=== PATIENT | female | born 1985 | race Caucasian/White ===

== ENCOUNTER 2019-05-12 15:37 | Outpatient (CLI) | payer MEDICAID, SELFPAY ==
[2019-05-12 16:33] LABS: Anion Gap 10.2 mmol/L (3-11); BUN 13 mg/dL (7-18); CO2 24.8 mmol/L (21.0-32.0); CREATININE 0.82 mg/dL (0.55-1.02); Calcium 9.2 mg/dL (8.5-10.1); Calculated LDL 64 mg/dL; Chloride 104 mmol/L (98-107); Cholesterol 145 mg/dL (50-200); Glucose 86 mg/dL (70-100); HDL Cholesterol 53 mg/dL (40-60); Sodium 139 mmol/L (136-145); Triglyceride 143 mg/dL (30-150)
== END 2019-05-12 15:57 ==
PROVIDERS: PCP Nurse Practitioner Family; Visit Provider Nurse Practitioner Family
DX: Z13.220 Encounter for screening for lipoid disorders (principal); Z13.1 Encounter for screening for diabetes mellitus; Z11.3 Encounter for screening for infections with a predominantly sexual mode of transmission; Z12.4 Encounter for screening for malignant neoplasm of cervix
CPT/HCPCS: 36415; 80048; 80061; 87491; 87591; 88142

== ENCOUNTER 2019-05-12 15:58 | Outpatient (REF) | payer MEDICAID, SELFPAY ==
--- NOTE | 2019-05-12 15:45 | PAPFT_PTH ---
PATIENT: Camilla Tinoco LOC: [facility] U#:[id number] AGE/SX: 34/F ROOM: RE05/12/[address]: MODESTA Beltran : 1985 BED: DIS: 05/12/2019 SPEC #: [id number] RECD: 05/13/19 12:44 STATUS: KAITLIN REShani #: [id number] IVONNE: 05/12/19 15:[address]: Wanda Grant DEPT: [facility] Cytology RECD BY: Kenzie Winkler ENTERED: 05/13/19 12:44 SP TYPE: PAPFT IVETH DR: Monserrat Call, JENNY Tissues: 1 - CX/ENDOCX FOR PAP SMEARS Procedures: PAP THIN PREP/UVM Screening Comments: [id number]
[2019-05-14 13:09] LABS: Chlamydia Result Negative; GC Result Negative; Specimen Description URINE
== END 2019-05-12 16:18 ==
LOC: LBN 15:58
PROVIDERS: PCP Nurse Practitioner Family; Visit Provider Nurse Practitioner Family
DX: Z11.3 Encounter for screening for infections with a predominantly sexual mode of transmission (principal); Z12.4 Encounter for screening for malignant neoplasm of cervix; Z90.710 Acquired absence of both cervix and uterus
CPT/HCPCS: 87491; 87591

== ENCOUNTER 2019-10-06 16:24 | Outpatient (REF) | payer MEDICAID, SELFPAY ==
[2019-10-06 19:15] LABS: TSH (W/Ref FT4) 1.73 uIU/mL (0.36-3.74)
[2019-10-08 04:56] LABS: Vitamin D 25 Total 20.3 ng/ml (30-100)
== END 2019-10-06 16:44 ==
LOC: LBN 16:24
PROVIDERS: PCP Nurse Practitioner Family; Visit Provider Family Medicine
DX: R53.83 Other fatigue (principal); R63.5 Abnormal weight gain
CPT/HCPCS: 82306; 84443

== ENCOUNTER 2020-02-05 10:41 | Emergency (ER) | payer MEDICAID, SELFPAY ==
[2020-02-05 10:44] VITALS: BP 127/85; PULSE 84; RESP 16; TEMP 36.7; O2SAT 97
--- NOTE | 2020-02-05 11:33 | W.ED.GENAD ---
Discharge Plan Disposition Patient Disposition: HOME Discharge Details Chief Complaint: DentalOral Clinical Impression: Dental abscess Primary Care Provider: Monserrat Call ED Provider: Bart Liang Home Meds and New Rx's Prescriptions: Continued escitalopram oxalate [Lexapro] 10 mg tablet 20 mg PO DAILY RF: 0 acetylcysteine [NAC] 600 mg capsule 1,200 mg PO BID RF: 0 cetirizine [Zyrtec] 10 mg tablet 10 mg PO DAILY Qty: 90 RF: 3 omeprazole magnesium [Prilosec OTC] 20 mg tablet,delayed release (DR/EC) 20 mg PO AC Qty: 90 RF: 3 naproxen sodium [Aleve] 220 MG capsule 1 tab PO PRN PRNRF: 0 penicillin V potassium 500 mg Tablet 500 mg PO QID RF: 0 Vyvanse 60 mg capsule 60 mg PO DAILY RF: 0 Discharge Instructions Instructions: Dental Abscess (ED) Additional Instructions: Please take full course of antibiotic as prescribed by your dentist. Please follow-up with your dentist. Call today to schedule follow-up. Return to the emergency department for any worsening or new concerning symptoms. Referrals: Monserrat Call, MALAIKA [Primary Care Provider] - Discharge Data Discharge Date/Time-TO BE ENTERED AT DEPARTURE: 02/05/20 12:36 Medical Decision Making 34-year-old female here with periapical dental abscess. Patient provided verbal informed consent to abscess incision and drainage. Periapical dental block was provided with lidocaine. Patient is to continue penicillin. Usual customary discharge instructions were provided. HPI General Mode of arrival: ambulatory. Date/Time Provider Initiated Documentation: 02/05/20 11:21. Limitations to Documentation: no limitations. Information obtained by: patient. HPI Narrative: 34-year-old female with history of chronic dental disease, presents with chief complaint of dental pain. Patient notes 2 days of pain and swelling right lower molar. She started penicillin prescription 2 days ago that was previously prescribed by dentist. She had similar flareup about a month ago that improved with penicillin. Today swelling was severe when she woke up and has improved with ice and gravity today. She took Aleve this morning which does help minimally with pain. No associated fever. Related Data Home Medications Medication Instructions Recorded Confirmed naproxen sodium [Aleve] 1 tab PO PRN PRN 01/22/16 02/05/20 cetirizine 10 mg tablet 10 mg PO DAILY #90 tab-cap 06/18/19 02/05/20 acetylcysteine 600 mg capsule 1,200 mg PO BID cap 10/06/19 02/05/20 escitalopram oxalate 10 mg tablet 20 mg PO DAILY tab 10/06/19 02/05/20 omeprazole magnesium 20 mg 20 mg PO AC #90 tab 01/25/20 02/05/20 tablet,delayed release Vyvanse 60 mg PO DAILY 02/05/20 02/05/20 penicillin V potassium 500 mg PO QID 02/05/20 02/05/20 Previous Rx's Medication Instructions Recorded cetirizine 10 mg tablet 10 mg PO DAILY #90 tab-cap 06/18/19 omeprazole magnesium 20 mg 20 mg PO AC #90 tab 01/25/20 tablet,delayed release Allergies Allergy/AdvReac Type Severity Reaction Status Date / Time pollen extracts AdvReac Verified 10/06/19 15:50 General Stated Complaint: DentalOral SIMEON: 4 Review of Systems Constitutional Constitutional: Denies fever(s) ENT Ears, Nose, Mouth, and Throat: Reports as per HPI [facility] Medical History Depression (Chronic 02/18/14) 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 Maria Esther Allan [facility] Pulmonology Opioid use disorder (Chronic) [place] 02/26/2014 Polysubstance abuse (Chronic) Thyroid nodule (Chronic 07/12/16) Tobacco use disorder (Chronic) 1 PPD Surgical History History of surgery on upper extremity (Acute) R for fx Status post cholecystectomy (Acute) Status post hysterectomy (Acute) Dysmenorrhea, menorrhagia, and NATALIYA III Family History Mother No problems noted. Father No problems noted. Sister Depression Grandmother Diabetes Social History Smoking/Tobacco Use Status: Current every day Tobacco Type: cigarettes Alcohol Intake: current Alcohol Intake frequency: 3 or more drinks per day Drug use: Daily Substance use type: marijuana Caregiver/Support person: No Household members: spouse Number of Children: 2 current occupation: Unknown What type of physical activity do you participate in: walking Frequency: 3-4 times per week Do you feel safe at home: Yes Do you feel safe in your relationship?: Yes Female Reproductive History Menstrual Menopause type: surgical History History 2 Para 2 Hx # Term Pregnancies Multiple births Hx # Pregnancies Ectopic pregnancies AB induced Hx Number of Living Children AB spontaneous Exam Const General: cooperative and no acute distress HENMT Mouth: tongue normal and moist mucous membranes Teeth and gingiva: poor dentition and other (Chronic fractured tooth #28 with adjacent swelling lateral to tooth) Other: No sublingual swelling, no trismus Eyes Conjunctivae: normal conjunctivae Sclera: normal sclerae Neck Neck: trachea midline and supple Skin General skin exam: no rashes or lesions noted Neuro General: patient alert, patient awake and tone normal Course Vital Signs Vital signs: Vital Signs Temperature 36.7 C 02/05/20 10:44 Pulse 84 02/05/20 10:44 Respiratory Rate 16 02/05/20 10:44 Blood Pressure 127/85 02/05/20 10:44 Pulse Oximetry 97 02/05/20 10:44 Temperature 36.7 C 02/05/20 10:44 Temperature Source Skin 02/05/20 10:44 Pulse 84 02/05/20 10:44 Respiratory Rate 16 02/05/20 10:44 Respiratory Effort Non-Labored 02/05/20 10:49 Blood Pressure 127/85 02/05/20 10:44 Blood Pressure Position Sitting 02/05/20 10:44 Pulse Oximetry 97 02/05/20 10:44 Oxygen Delivery Method Room Air 02/05/20 10:44 Oxygen Flow Rate 0 02/05/20 10:44 Pain Level 5 02/05/20 10:44 Procedures Abscess I/D Site: Other (dental) Side (if applicable): Right Sedation/analgesia: None Local Anesthetic: Lidocaine 2% Amount of anesthesia used (mL): 2 Technique: Incised with #11 Blade Amount of fluid expressed (mL): 1 Packing used?: None Complications: Pain (with injection)
[2020-02-05] MEDS: Benzocaine 20% Gel 30 GM JAR MM (11:47)
[2020-02-05] MEDS: Acetaminophen 325 MG TAB 650 MG PO (11:47)
== END 2020-02-05 12:36 | disposition home or self-care (01) ==
PROVIDERS: Emergency Provider Student in an Organized Health Care Education/Training Program; PCP Nurse Practitioner Family
DX: R68.84 Jaw pain (principal); R22.0 Localized swelling, mass and lump, head; K04.7 Periapical abscess without sinus
CPT/HCPCS: 41800

== ENCOUNTER 2020-07-19 15:29 | Emergency (ER) | payer MEDICAID, SELFPAY ==
[2020-07-19 15:41] VITALS: PULSE 98; RESP 28
--- NOTE | 2020-07-19 15:45 | DI.RAD_ITS ---
EXAM: XR SHOULDER LT COMPLETE 2+V CLINICAL HISTORY: Fall, LUE pain. TECHNIQUE: 2D digital imaging was performed. COMPARISON: CR CHEST 2 VIEWS PA,LAT from 06/28/2016 CR CHEST 2 VIEWS PA,LAT from 06/28/2016 FINDINGS: BONES: There is a moderately displaced acute fracture of the greater tuberosity. No bony destructive lesion is seen. JOINTS: No dislocation present. SOFT TISSUE: Normal. Diffuse interstitial disease is seen in the visualized portions of the lungs. IMPRESSION: Displaced greater tuberosity fracture. Fragment is displaced approximately 6 mm laterally. DATA REPOSITORY: RADIATION DOSE DELIVERED:
--- NOTE | 2020-07-19 15:47 | W.ED.GENAD ---
Discharge Plan Disposition Patient Disposition: HOME Condition: Improving Discharge Details Clinical Impression: Fracture of greater tuberosity of left humerus Primary Care Provider: Monserrat Call ED Provider: Jaime Rivero Home Meds and New Rx's Prescriptions: New ketorolac 10 mg tablet 10 mg PO TID PRN (Reason: pain) 5 Days Qty: 14 RF: 0 methocarbamol 500 mg tablet 500 mg PO Q6H PRN (Reason: pain or muscular spasm) Qty: 14 RF: 0 Continued escitalopram oxalate [Lexapro] 10 mg tablet 20 mg PO DAILY RF: 0 acetylcysteine [NAC] 600 mg capsule 1,200 mg PO BID RF: 0 clindamycin phosphate 1 % gel 1 applic TP DAILY Qty: 30 RF: 0 omeprazole magnesium [Prilosec OTC] 20 mg tablet,delayed release (DR/EC) 20 mg PO AC Qty: 90 RF: 3 cetirizine [Zyrtec] 10 mg tablet 10 mg PO DAILY Qty: 90 RF: 3 naproxen sodium [Aleve] 220 MG capsule 1 tab PO PRN PRNRF: 0 Vyvanse 60 mg capsule 60 mg PO DAILY RF: 0 Discharge Instructions Additional Instructions: Wear sling until seen by orthopedics. Apply ice 20 minutes at a time, 20 minutes off, to reduce pain and swelling. May use the prescribed Toradol as needed for pain. Do not use in addition to Aleve/naproxen/ibuprofen/Motrin. As we discussed, you may use the provided hydromorphone if needed for severe or breakthrough pain. Please call the orthopedic office at [phone] for an appointment time. I discussed your case with Dr. Tate this evening. Medical Decision Making 35-year-old female slipped and fell at home landing on outstretched left arm. She states she developed immediate left arm and shoulder pain. She did not suffer any other injury. She arrives anxious and in significant distress. She has a history of polysubstance abuse and initially stated she did not wish to have any narcotic analgesia. After being unable to examine her due to the significant amount of pain she was experiencing, we discussed the combination of the small aliquot of opiate, anxiolytic, and anti-inflammatory. She was in agreement with this. Referred for x-ray which reveals fracture of the greater tuberosity of the humeral head. Will place in a sling. Patient to follow-up in orthopedic clinic. As per her wishes to avoid any significant further narcotics, we will have her take prescribed Toradol along with methocarbamol if needed for further pain/spasm.. She is instructed to use liberal amounts of ice. Prior to discharge, patient began to cry and requested a very small amount of narcotics to be used for severe/breakthrough pain. I do feel this is reasonable. We will send her home with a small number of Dilaudid to be used as needed for severe and breakthrough pain. HPI General Mode of arrival: ambulatory. Date/Time Provider Initiated Documentation: 07/19/20 15:40. Limitations to Documentation: no limitations. Information obtained by: patient. History of Present Illness 35 year old F presents to the emergency department with the chief complaint of Fall and left arm pain, described as severe, Quality is described as dull, and is localized to the left and upper extremity. Patient reports no radiation. Patient started experiencing this minute(s) and it has been constant. No relieving factors improve symptom(s), Movement worsens symptoms . Patient notes no other symptoms.; denies chest pain, headaches and syncope. Patient did receive the following treatments prior to arrival, none Related Data Home Medications Medication Instructions Recorded Confirmed naproxen sodium [Aleve] 1 tab PO PRN PRN 01/22/16 07/19/20 acetylcysteine 600 mg capsule 1,200 mg PO BID cap 10/06/19 07/19/20 escitalopram oxalate 10 mg tablet 20 mg PO DAILY tab 10/06/19 07/19/20 omeprazole magnesium 20 mg 20 mg PO AC #90 tab 01/25/20 07/19/20 tablet,delayed release Vyvanse 60 mg PO DAILY 02/05/20 07/19/20 clindamycin phosphate 1 % topical 1 applic TP DAILY #30 gm 05/12/20 07/19/20 gel cetirizine 10 mg tablet 10 mg PO DAILY #90 tab-cap 06/22/20 07/19/20 ketorolac 10 mg PO TID PRN 5 Days #14 tab 07/19/20 methocarbamol 500 mg PO Q6H PRN #14 tab 07/19/20 Previous Rx's Medication Instructions Recorded omeprazole magnesium 20 mg 20 mg PO AC #90 tab 01/25/20 tablet,delayed release clindamycin phosphate 1 % topical 1 applic TP DAILY #30 gm 05/12/20 gel cetirizine 10 mg tablet 10 mg PO DAILY #90 tab-cap 06/22/20 ketorolac 10 mg PO TID PRN 5 Days #14 tab 07/19/20 methocarbamol 500 mg PO Q6H PRN #14 tab 07/19/20 Allergies Allergy/AdvReac Type Severity Reaction Status Date / Time pollen extracts AdvReac Verified 07/19/20 15:43 General Stated Complaint: Orthopedic SIMEON: 3 Review of Systems Narrative: Denies other injury. No head/neck/chest/back pain [facility] Medical History (Updated 07/19/20 @ 17:11 by Jaime Rivero MD) Depression (02/18/14) Langerhans cell histiocytosis of lung (12/03/16) Dr. Maria Esther Allan [facility] Pulmonology Opioid use disorder [facility] 02/26/2014 Polysubstance abuse Thyroid nodule (07/12/16) Tobacco use disorder 1 PPD Surgical History History of surgery on upper extremity R for fx Status post cholecystectomy Status post hysterectomy Dysmenorrhea, menorrhagia, and NATALIYA III Family History Mother No problems noted. Father No problems noted. Sister Depression Grandmother Diabetes Social History Smoking/Tobacco Use Status: Current every day Tobacco Type: cigarettes Smoking risk assessment performed?: Yes Alcohol Intake: current Alcohol Intake frequency: 3 or more drinks per day Drug use: Daily Substance use type: marijuana Caregiver/Support person: No Household members: spouse Number of Children: 2 current occupation: Unknown What type of physical activity do you participate in: walking Frequency: 3-4 times per week Do you feel safe at home: Yes Do you feel safe in your relationship?: Yes Female Reproductive History Menstrual Menopause type: surgical History History 2 Para 2 Hx # Term Pregnancies Multiple births Hx # Pregnancies Ectopic pregnancies AB induced Hx Number of Living Children AB spontaneous Exam Narrative Exam Narrative: GEN: awake, alert, oriented 3. In pain and anxious HEAD: Normocephalic, atraumatic ENT: Mucous membranes moist, oropharynx unremarkable, External ear exam unremarkable EYES: PERRL, EOMI NECK: Full ROM, no JEB, no menigismus CHEST/RESP: Nontender, clear to auscultation bilateral, no wheeze/rhonchi/rales CARDIOVASCULAR: RRR, no murmur, rub fercho. 2+ Rad pulse bilateral ABDOMEN: Soft, nontender, no mass. +Bowel sounds EXT: Left lateral humeral head tender to palpation. Sensation intact. Patient was able to demonstrate wrist extension, make the okay sign, cross long finger over index. Sensation was intact distally as well. 2+ radial pulse bilaterally. Neuro: Grossly normal neurologic exam, conversant, interactive. Psych: Speech fluent, thoughts congruent, affect anxious Course Vital Signs Vital signs: Vital Signs Pulse 98 H 07/19/20 15:41 Respiratory Rate 28 H 07/19/20 15:41 Pulse 98 H 07/19/20 15:41 Respiratory Rate 28 H 07/19/20 15:41 Blood Pressure Position Sitting 07/19/20 15:41 Pain Level 10 07/19/20 15:41 Comment 07/19/20 15:41
[2020-07-19] MEDS: HYDROmorphone 2 MG/ML VIAL 1 MG IVP (15:59)
[2020-07-19] MEDS: Ketorolac 30 MG/ML VIAL IVP (16:00)
[2020-07-19] MEDS: LORazepam 2 MG/ML VIAL 1 MG IVP (16:00)
[2020-07-19 16:09] VITALS: BP 124/90; PULSE 90; RESP 14; TEMP 36.4; O2SAT 95
[2020-07-19 16:55] VITALS: BP 121/83; PULSE 77; RESP 18; O2SAT 94
--- NOTE | 2020-07-19 17:02 | DI.VRAD_ITS ---
PROCEDURE INFORMATION: Exam: XR Left Shoulder Exam date and time: 07/19/2020 3:47 PM Age: 35 years old Clinical indication: Other: Fall, lue pain TECHNIQUE: Imaging protocol: XR Left shoulder. Views: 2 or more views. COMPARISON: No relevant prior studies available. FINDINGS: Bones/joints: Displaced fracture of the greater tuberosity of the humeral head. The glenohumeral joint is aligned Lungs: Increased interstitial densities in the lung diaz may represent interstitial edema or chronic lung changes Soft tissues: Soft tissue swelling of the shoulder IMPRESSION: Displaced fracture of the greater tuberosity of the humeral head. Dictated and Authenticated by: Yeni Shaw MD. Ordering:DEANGELO Sandoval MD
[2020-07-19 18:08] VITALS: BP 111/91; PULSE 80; RESP 18; TEMP 36.5; O2SAT 96
[2020-07-19] MEDS: HYDROmorphone 2 MG TAB PO (18:09)
[2020-07-19] MEDS: HYDROmorphone 2 MG/ML VIAL 0.5 MG IVP (18:09)
[2020-07-19 18:22] VITALS: BP 111/91; PULSE 80; RESP 18; TEMP 36.5; O2SAT 96
== END 2020-07-19 18:23 | disposition home or self-care (01) ==
PROVIDERS: Emergency Provider Emergency Medicine; PCP Nurse Practitioner Family
DX: S42.252A Displaced fracture of greater tuberosity of left humerus, initial encounter for closed fracture (principal); W01.0XXA Fall on same level from slipping, tripping and stumbling without subsequent striking against object, initial encounter
CPT/HCPCS: 96374; 96375; 96376; 99284; 73030; J1885; J2060; L3650

== ENCOUNTER 2020-07-26 04:00 | Outpatient (CLI) | payer MEDICAID, SELFPAY ==
[2020-07-27 17:36] LABS: SARS-CoV-2 RNA Not Detected (NotDetected); SARS-CoV-2 RNA Source Nasal/Nares
== END 2020-07-26 04:20 ==
PROVIDERS: PCP Nurse Practitioner Family; Visit Provider Student in an Organized Health Care Education/Training Program
DX: Z01.818 Encounter for other preprocedural examination (principal); S42.252A Displaced fracture of greater tuberosity of left humerus, initial encounter for closed fracture
CPT/HCPCS: U0003

== ENCOUNTER 2020-07-26 12:05 | Outpatient (CLI) | payer OTHER, MEDICAID, SELFPAY ==
--- NOTE | 2020-07-26 11:30 | DI.RAD_ITS ---
EXAM: XR SHOULDER LT COMPLETE 2+V CLINICAL HISTORY: Left shoulder pain. TECHNIQUE: 2D digital imaging was performed. COMPARISON: CR,XR XR SHOULDER LT COMPLETE 2+V from 07/19/2020 FINDINGS: BONES: There has been no significant change in alignment of the fracture involving the greater tubero sity of the left humerus. No new fracture or dislocation is identified. No bony destructive lesion is seen. JOINTS: No dislocation present. SOFT TISSUE: Normal. IMPRESSION: Stable left humeral fracture. DATA REPOSITORY: RADIATION DOSE DELIVERED:
== END 2020-07-26 12:25 ==
PROVIDERS: PCP Nurse Practitioner Family; Referring Provider Nurse Practitioner Family; Visit Provider Student in an Organized Health Care Education/Training Program
DX: S42.392A Other fracture of shaft of left humerus, initial encounter for closed fracture (principal)
CPT/HCPCS: 73030

== ENCOUNTER 2020-07-29 11:24 | Day surgery (SDC) | payer OTHER, MEDICAID, SELFPAY ==
[2020-07-29] VITALS (7 sets, daily range): BP systolic 112–133; BP diastolic 75–95; PULSE 77–96; RESP 16–22; TEMP 36.3–36.6; O2SAT 93–100
[2020-07-29] MEDS: Lactated Ringers 1,000 ML 100 ML IV ×2 (12:28→16:37)
--- NOTE | 2020-07-29 13:00 | DI.RAD_ITS ---
EXAM: XR HUMERUS LT CLINICAL HISTORY: Fracture of greater tuberosity of left humerus. TECHNIQUE: 2D and realtime digital imaging was performed. COMPARISON: CR XR SHOULDER LT COMPLETE 2+V from 07/26/2020 FINDINGS: Fluoroscopy was provided in the OR during open reduction and internal fixation of the previously note d proximal humeral fracture. Hard copy images show placement of 3 partially threaded screws through the fracture. Alignment appears anatomic. Please see procedure note for details. RADIATION DOSE DELIVERED:
[2020-07-29] MEDS: Bupivacaine LIPOSOME/PF 133 MG/10 ML VIAL IJ (13:15)
[2020-07-29] MEDS: Bupivacaine 0.5% Pres-Free 30 ML VIAL (13:15)
[2020-07-29] MEDS: ceFAZolin 2 GM/50 ML BAG IVPB (14:26)
[2020-07-29] MEDS: EPINEPHrine 1 MG/ML AMP pres-free ×2 (15:11→16:25)
[2020-07-29] MEDS: Bupivacaine 0.25% Pres-Free 30 ML VIAL ×2 (15:11→16:25)
--- NOTE | 2020-07-29 17:01 | PDOC.DSDIS_ITS ---
Discharge Plan Disposition Patient Disposition: HOME Condition: Stable Discharge Details Reason For Visit: Left shoulder surgery Attending Provider: López Ortega Primary Care Provider: Monserrat Call Home Meds and New Rx's Prescriptions: New ibuprofen 800 mg tablet 800 mg PO BID PRN (Reason: pain, moderate) Qty: 60 RF: 0 aspirin 81 mg tablet,delayed release (DR/EC) 81 mg PO DAILY 14 Days Qty: 14 RF: 0 oxycodone 5 mg tablet 5 - 10 mg PO Q4H PRN (Reason: moderate to severe pain) Qty: 16 RF: 0 Continued acetaminophen [Tylenol Extra Strength] 500 mg tablet 500 mg PO Q6H PRNRF: 0 methocarbamol 750 mg tablet 750 mg PO QID Qty: 30 RF: 1 diclofenac sodium [Voltaren] 1 % gel 2 - 4 g topical QID PRN (Reason: pain) Qty: 100 RF: 0 escitalopram oxalate [Lexapro] 10 mg tablet 20 mg PO DAILY RF: 0 acetylcysteine [NAC] 600 mg capsule 1,200 mg PO BID RF: 0 clindamycin phosphate 1 % gel 1 applic TP DAILY Qty: 30 RF: 0 omeprazole magnesium [Prilosec OTC] 20 mg tablet,delayed release (DR/EC) 20 mg PO AC Qty: 90 RF: 3 cetirizine [Zyrtec] 10 mg tablet 10 mg PO DAILY Qty: 90 RF: 3 Vyvanse 60 mg capsule 60 mg PO DAILY RF: 0 Discontinued naproxen sodium [Aleve] 220 MG capsule 1 tab PO PRN PRNRF: 0 Discharge Instructions Additional Instructions: Surgery: Left proximal humerus, greater tuberosity ORIF Activity: Non-weightbearing in sling. May loosen or remove sling while resting in chair or bed. Please avoid most lifting and reaching reaching with your left arm for approximately 6 to 8 weeks. May use lightly for essential activities of daily living. A physical therapy prescription will be provided separately in the office at follow-up as needed.. Prescriptions: Aspirin 81 mg take 1 daily to prevent a blood clot for 2 weeks Ibuprofen 800 mg take 1 every 12 hours with a meal as needed for moderate pain Oxycodone 5 mg take 1-2 every 4-6 hours as needed for severe pain You may use [id number] Tylenol (acetaminophen) as needed for mild pain. These pain medications may be taken all at once or in different combinations as needed. Also, recommend Colace (docusate) as a stool softener as surgery and pain medicine cause constipation. Dressings: Leave splint and dressing in place until follow-up. Keep clean and dry at all times. Follow-up: 10-[address] Ortega (08/09/20 at 9:45 AM) Let us know right away if you develop any redness, drainage, fevers, chest pain, or trouble breathing. Do not drink alcohol or drive for at least 24 hours after anesthesia. Please call the office during business hours with any questions or concerns. Referrals: López Ortega MD [ [facility] STAFF PHYSICIAN] - Discharge Orders Discharge Orders: Discharge Order (Routine); Ordered 07/29/20 Ordered By: López Ortega DS: Diagnosis Discharge Diagnosis (1) Fracture of greater tuberosity of left humerus: Status: Acute
--- NOTE | 2020-07-29 17:02 | W.PM.OP ---
Date of service: 07/29/20 Time of Service: 16:37 Operative Note Operative Note DATE OF PROCEDURE: 07/29/20 PRE-OP DIAGNOSIS: Left proximal humerus fracture POST-OP DIAGNOSIS: same PROCEDURE: Left proximal humerus ORIF, CPT # 04656 SURGEON: López Ortega SEWING MACHINE OPERATOR PAPER BAGS: Siobhan Mota ANESTHESIA: GETA, regional and local ESTIMATED BLOOD LOSS: 20 PATHOLOGY: none sent TOURNIQUET TIME: 0 COMPLICATIONS: None Patient was transported to: PACU Patient's condition: stable Implants: 3x 4.5 mm cannulated partially threaded cancellous screw and 2 washers Indications: Please see complete medical record for details. Findings: Displaced greater tuberosity fracture. Intact rotator cuff. Intact rotator interval and bicipetal groove. Procedure Description: In the operating room, general anesthesia was induced. The patient was positioned supine on the operating room table. All bony prominences were well-padded. Preoperative antibiotics were administered. The left shoulder was prepped and draped in the usual sterile fashion. The correct patient, procedure, and side of the procedure were all verified prior to incision. Anatomic landmarks were drawn about the shoulder including the most proximal extent of the axillary nerve, which was not to be violated. Under fluoroscopic guidance a stab incision was made and the ball spike pusher was used to partially reduce the greater tuberosity fracture. This preinjected with 5 cc of 0.25% bupivacaine containing epinephrine. A K wire was used in attempt to optimize percutaneous reduction, but was unsuccessful. A lateral approach approximately 5 cm was made off the anterior lateral acromion easily and atraumatically dividing the anterior one third and posterior two third deltoid. Care was taken not to divide the muscle more distally in the axillary nerve was not visualized. It was preinjected with 25 cc of 0.25% bupivacaine containing epinephrine. The fracture was cleaned of hemorrhagic and fibrinous material. #2 FiberWire was placed in the superior and posterior rotator cuff and used to guide reduction under direct and fluoroscopic guidance as well as optimizing arm positioned in the arm ordonez. While maintaining reduction 3 parallel threaded K wires were placed across the fracture into the medial neck. Appropriate reduction was confirmed on multiple fluoroscopic views. The wires were sequentially overdrilled only the near cortex due to soft bone and then appropriately measured in length screws were placed initially 3 containing washers and the 2 of the screws were switched replaced 1 with a washer and without to optimize screw lengths as there was no cancellous bone fixation and longer screws were needed to engage the far cortex. Also due to soft bone, the greater tuberosity fragment reduction was slightly changed as the tuberosity compressed with the screw fixation. There is no displacement superiorly or posteriorly it was excepted. #2 FiberWire was used to secure fixation over the tuberosity from anteriorly posteriorly taking care to avoid the biceps tendon. The reduction stitches were removed. The wound was copiously irrigated normal saline. Deeper layers were infiltrated with an additional 20 cc of 0.25% bupivacaine containing epinephrine owing to the patient's significant pain and drug history. The deltoid re-approximated itself nicely and was secured with #1 Vicryl and [id number] interrupted fashion. Superficial layers were copiously irrigated. Subcutaneous tissue was closed using 2-0 Monocryl in a buried fashion. The skin was closed in 3-0 Monocryl in a running subcuticular fashion and skin glue applied over the top followed by Mepilex bandage. The stab incision was closed using 3-0 Monocryl in a buried interrupted fashion and covered with Steri-Strips, gauze, and Tegaderm dressing. The patient awoke from anesthesia without complication and was transferred to the recovery room in a stable condition.
== END 2020-07-29 18:51 | disposition home or self-care (01) ==
LOC: SUR 08-01 19:57 → MS 08-16 15:17 → SUR 08-16 15:17
PROVIDERS: PCP Nurse Practitioner Family; Visit Provider Student in an Organized Health Care Education/Training Program
PROC: (CPT 24420; principal; 2020-07-29 13:15)
DX: S42.252A Displaced fracture of greater tuberosity of left humerus, initial encounter for closed fracture (principal); J84.82 Adult pulmonary Langerhans cell histiocytosis; F11.10 Opioid abuse, uncomplicated; F32.9 Major depressive disorder, single episode, unspecified; W01.0XXA Fall on same level from slipping, tripping and stumbling without subsequent striking against object, initial encounter
CPT/HCPCS: 23615; 76942; L3670; 73060; J0171; J0690; J1100; J1885; J2250; J2405

== ENCOUNTER 2020-08-09 11:23 | Outpatient (CLI) | payer OTHER, MEDICAID, SELFPAY ==
--- NOTE | 2020-08-09 10:00 | DI.RAD_ITS ---
EXAM: XR SHOULDER LT COMPLETE 2+V CLINICAL HISTORY: F/u TECHNIQUE: COMPARISON: CR XR SHOULDER LT COMPLETE 2+V from 07/26/2020 XR HUMERUS LT from 07/29/2020 FINDINGS: Two views were obtained and show [address] transfixing greater tuberosity fracture o f the humerus. There is mild displacement at the fracture site. Alignment appears essentially uncha nged in comparison with intraoperative images. IMPRESSION: RADIATION DOSE DELIVERED: Total DLP Total DLP
== END 2020-08-09 11:43 ==
PROVIDERS: PCP Nurse Practitioner Family; Referring Provider Nurse Practitioner Family; Visit Provider Student in an Organized Health Care Education/Training Program
DX: S42.252D Displaced fracture of greater tuberosity of left humerus, subsequent encounter for fracture with routine healing (principal)
CPT/HCPCS: 73030

== ENCOUNTER 2020-09-20 14:21 | Outpatient (CLI) | payer OTHER, MEDICAID, SELFPAY ==
--- NOTE | 2020-09-20 14:00 | DI.RAD_ITS ---
EXAM: XR SHOULDER LT COMPLETE 2+V INDICATION: f/u. COMPARISON: CR XR SHOULDER LT COMPLETE 2+V from 08/09/2020 TECHNIQUE: 2D digital imaging was performed. FINDINGS: Screws are again noted in the humeral head. There has been no change in the alignment of the greater tuberosity fracture or hardware. There has been some healing since the previous exam. No new abnor malities are seen. DATA REPOSITORY: RADIATION DOSE DELIVERED:
== END 2020-09-20 14:41 ==
PROVIDERS: PCP Nurse Practitioner Family; Referring Provider Nurse Practitioner Family; Visit Provider Student in an Organized Health Care Education/Training Program
DX: S42.252A Displaced fracture of greater tuberosity of left humerus, initial encounter for closed fracture (principal)
CPT/HCPCS: 73030

== ENCOUNTER 2020-11-09 13:50 | Outpatient (CLI) | payer OTHER, MEDICAID, SELFPAY ==
--- NOTE | 2020-11-09 14:00 | DI.RAD_ITS ---
EXAM: XR SHOULDER LT COMPLETE 2+V CLINICAL HISTORY: f/u. TECHNIQUE: 2D digital imaging was performed. COMPARISON: CR XR SHOULDER LT COMPLETE 2+V from 09/20/2020 FINDINGS: BONES: There are stable post operative changes present. No new fracture or dislocation. JOINTS: The joint spaces are well maintained. No joint effusion is present. SOFT TISSUE: Normal. IMPRESSION: Stable postoperative changes. DATA REPOSITORY: RADIATION DOSE DELIVERED:
== END 2020-11-09 13:51 | disposition home or self-care (01) ==
LOC: DIORS 13:50
PROVIDERS: PCP Nurse Practitioner Family; Visit Provider Student in an Organized Health Care Education/Training Program
DX: M25.512 Pain in left shoulder (principal)
CPT/HCPCS: 73030

== ENCOUNTER 2020-11-28 03:23 | Outpatient (CLI) | payer OTHER, MEDICAID, SELFPAY ==
[2020-11-29 14:32] LABS: COVID-19 RT-PCR UVMMC Result Negative (Negative)
== END 2020-11-28 03:24 | disposition home or self-care (01) ==
LOC: LBO 03:24
PROVIDERS: PCP Nurse Practitioner Family; Visit Provider Nurse Practitioner Family
DX: Z20.822 Contact with and (suspected) exposure to COVID-19 (principal)
CPT/HCPCS: U0003

== ENCOUNTER 2021-02-08 13:54 | Outpatient (CLI) | payer OTHER, MEDICAID, SELFPAY ==
--- NOTE | 2021-02-08 13:15 | DI.RAD_ITS ---
Exam(s) XR SHOULDER LT COMPLETE 2+V EXAM: XR SHOULDER LT COMPLETE 2+V CLINICAL HISTORY: f/u. TECHNIQUE: 2D digital imaging was performed. COMPARISON: CR XR SHOULDER LT COMPLETE 2+V from 11/09/2020 FINDINGS: BONES: There again seen partially threaded screws transfixing the left proximal humeral fracture. Th e fracture appears largely well-healed. No bony destructive lesion is seen. There is no new fracture . JOINTS: No dislocation present. SOFT TISSUE: Normal. IMPRESSION: Healed proximal left humeral fracture. DATA REPOSITORY: RADIATION DOSE DELIVERED:
== END 2021-02-08 13:55 | disposition home or self-care (01) ==
LOC: DIORS 13:55
PROVIDERS: PCP Nurse Practitioner Family; Referring Provider Nurse Practitioner Family; Visit Provider Student in an Organized Health Care Education/Training Program
DX: S42.252D Displaced fracture of greater tuberosity of left humerus, subsequent encounter for fracture with routine healing (principal)
CPT/HCPCS: 73030

== ENCOUNTER 2021-11-06 03:17 | Outpatient (CLI) | payer MEDICAID, SELFPAY ==
[2021-11-06 14:14] LABS: Abs Immature Grans 0.03 10^3/uL (0.0-0.06); Absolute Basophil Count 0.06 10^3/uL (0.0-0.2); Absolute Eosinophil Count 0.21 10^3/uL (0.0-0.7); Absolute Lymphocyte Count 2.39 10^3/uL (1.2-3.4); Absolute Monocyte Count 0.49 10^3/uL (0.1-0.8); Absolute Neutrophil Count 5.97 10^3/uL (1.2-6.7); Basophils % 0.7; Eosinophils % 2.3; HGB 14.8 g/dL (11.2-15.7); Immature Grans % 0.3; Lymphocytes % 26.1; MCH 34.3 pg (27.0-33.0); MCHC 33.6 % (32.0-36.0); MCV 102.1 fL (80-95); MPV 10.4 fL (8.0-11.0); Monocytes % 5.4; Neutrophils % 65.2; Nucleated RBC 0 %; Platelet Count 313 10^3/uL (130-400); RBC 4.31 10^6/uL (3.93-5.22); RDW 13.2 % (11.7-14.6); WBC 9.15 10^3/uL (4.4-10.8)
[2021-11-06 14:32] LABS: *AMPHETAMINES SCREEN URINE Positive (Negative); *BARBITURATES SCREEN URINE Negative (Negative); *BENZODIAZEPINES SCREEN URINE Negative (Negative); Cannabinoids THC Positive (Negative); Cocaine Screen,Urine Negative (Negative); METHADONE URINE SCREEN Negative (Negative); OPIATES URINE SCREEN Negative (Negative); Tricyclic Antidepressants Negative (Negative)
[2021-11-06 14:33] LABS: Hemoglobin A1C 5.1 % (<5.7)
[2021-11-06 16:12] LABS: ALT 33 U/L (14-59); AST 20 U/L (15-37); Alkaline Phosphatase 137 U/L (46-116); Anion Gap 9.4 mmol/L (3-11); BUN 14 mg/dL (7-18); Bilirubin, Total 0.3 mg/dL (0.2-1.0); CO2 26.6 mmol/L (21.0-32.0); Calcium 9.4 mg/dL (8.5-10.1); Calculated LDL 73 mg/dL (<100); Chloride 102 mmol/L (98-107); Cholesterol 162 mg/dL (<200); Folate 4.6 ng/mL (8.6-20.0); Glucose 84 mg/dL (74-106); HDL Cholesterol 60 mg/dL (40-60); Potassium 3.8 mmol/L (3.5-5.1); Sodium 138 mmol/L (136-145); TSH 2.44 uIU/mL (0.36-3.74); Total Protein 7.4 g/dL (6.4-8.2); Triglyceride 146 mg/dL (<150); Vitamin B12 321 pg/mL (193-986)
[2021-11-06 16:34] LABS: C-Reactive Protein 0.25 mg/dL (0.0-0.3); FREE T4 0.81 ng/dL (0.76-1.46)
== END 2021-11-06 03:18 | disposition home or self-care (01) ==
LOC: LBO 03:17
PROVIDERS: Nurse Practitioner Psychiatric/Mental Health; PCP Nurse Practitioner Family; Visit Provider Nurse Practitioner Family
DX: F34.1 Dysthymic disorder (principal)
CPT/HCPCS: 36415; 80053; 80061; 80307; 82607; 82746; 83036; 84439; 84443; 85025; 86140

== ENCOUNTER 2022-11-27 13:13 | Outpatient (CLI) | payer MEDICAID, SELFPAY ==
--- NOTE | 2022-11-27 | DI.RAD_ITS ---
Exam(s) XR SHOULDER RT COMPLETE 2+V EXAM: XR SHOULDER RT COMPLETE 2+V CLINICAL HISTORY: FELL, RT SHOULDER PAIN. TECHNIQUE: 2D digital imaging was performed of the right shoulder. Six images were obtained. AP, G rashey, Y-view and axillary views were obtained. COMPARISON: No exams were available for comparison FINDINGS: BONES: No acute fracture is present. No bony destructive lesion is seen. JOINTS: No dislocation present. SOFT TISSUE: Normal. IMPRESSION: Unremarkable radiographs of the right shoulder. DATA REPOSITORY: RADIATION DOSE DELIVERED:
--- NOTE | 2022-11-27 | DI.RAD_ITS ---
Exam(s) XR RIBS LT W PA LAT CHEST EXAM: XR RIBS LT W PA LAT CHEST CLINICAL HISTORY: FELL, RT RIB PAIN TECHNIQUE: 2D digital imaging was performed. Four images are obtained. COMPARISON: CR CHEST 2 VIEWS PA,LAT from 06/28/2016 FINDINGS: MEDIASTINUM: Normal. HEART: Normal. PULMONARY VASCULATURE: Normal. LUNGS: There are chronic cystic changes in the lungs. No focal consolidating infiltrates are seen. PLEURAL SPACE: No pleural effusion or pneumothorax. BONE:Within normal limits for the patient's age. LEFT RIBS: Normal. OTHER FINDINGS:Normal. IMPRESSION: 1. No acute pulmonary findings. 2. Unremarkable left ribs. DATA REPOSITORY: RADIATION DOSE DELIVERED:
== END 2022-11-27 13:33 ==
LOC: DI 13:14
PROVIDERS: PCP Nurse Practitioner Family; Visit Provider Nurse Practitioner Adult Health
DX: M25.511 Pain in right shoulder (principal); R07.81 Pleurodynia; R91.8 Other nonspecific abnormal finding of lung field; Z91.81 History of falling
CPT/HCPCS: 71046; 71100; 73030

== ENCOUNTER 2024-12-07 16:31 | Outpatient (REF) | payer MEDICAID, SELFPAY | END 2024-12-07 16:32 | disposition home or self-care (01) | LOC: LBN 16:31 | PROVIDERS: PCP Nurse Practitioner Family; Visit Provider Nurse Practitioner Family | DX: N30.01 Acute cystitis with hematuria (principal) | CPT/HCPCS: 87086 ==

== ENCOUNTER 2025-06-02 18:29 | Outpatient (REF) | payer MEDICAID, SELFPAY ==
[2025-06-02 15:18] LABS: RBC >50 HPF (0-2); WBC >50 HPF (0-5)
== END 2025-06-02 18:30 | disposition home or self-care (01) ==
LOC: LBN 18:29
PROVIDERS: PCP Nurse Practitioner Family; Visit Provider Physician Assistant Medical
DX: N39.0 Urinary tract infection, site not specified (principal)
CPT/HCPCS: 87077; 81015; 87086; 87186